=== PATIENT | female | born 1975 | race American Indian/Alaskan Native ===

== ENCOUNTER 2022-01-15 20:56 | Emergency (ER) | payer OTHER, BC ==
[2022-01-16] MEDS ORDERED: IBUPROFEN 800 MG TAB PO ONE (02:35)
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
[2022-01-16 05:01] VITALS: BP 127/62
== END 2022-01-16 04:58 | disposition home or self-care (01) ==
LOC: ED 20:56
DX: S16.1XXA Strain of muscle, fascia and tendon at neck level, initial encounter (principal); Z88.2 Allergy status to sulfonamides; X58.XXXA Exposure to other specified factors, initial encounter; Y93.89 Activity, other specified; Y92.89 Other specified places as the place of occurrence of the external cause; Y99.8 Other external cause status
CPT/HCPCS: 72040; 99283